=== PATIENT | female | born 1935 | race Caucasian/White ===

== ENCOUNTER 2019-05-19 11:48 | Emergency (ER) | payer MEDICARE, BC ==
[~2019-05-19] VITALS: Ht 162.6 cm; Wt 58.0 kg
[~2019-05-19 11:48] MED LIST: ASPI-611 PO; MULT-1179 PO; RED600TA PO; lidocaine 1%/epinephrine 1:100,000 injection 50ml vial ONE
[2019-05-19 12:18] VITALS: BP 183/105
[2019-05-19] MEDS ORDERED: AMOX-422 PO (13:31)
[2019-05-19] MEDS ORDERED: TETanus/Pertussis (Acell)/Diphther VAC/PF (Tdap-Adult) 0.5ml syringe IM ONE (13:35)
== END 2019-05-19 14:02 | disposition home or self-care (01) ==
LOC: ER 11:49
DX: S62.632B Displaced fracture of distal phalanx of right middle finger, initial encounter for open fracture (principal); M81.0 Age-related osteoporosis without current pathological fracture; Z98.890 Other specified postprocedural states; Z91.041 Radiographic dye allergy status; Z79.82 Long term (current) use of aspirin; Z79.899 Other long term (current) drug therapy; W22.8XXA Striking against or struck by other objects, initial encounter; Y93.89 Activity, other specified; Y92.89 Other specified places as the place of occurrence of the external cause; Y99.8 Other external cause status
CPT/HCPCS: 29130; 73140; 90471; 99283

== ENCOUNTER 2021-03-26 21:08 | Emergency (ER) | payer MEDICARE, BC ==
[~2021-03-26] VITALS: Ht 162.6 cm; Wt 57.2 kg
[~2021-03-26 21:08] MED LIST changes: +APIX5TAB3 PO; +ASCO-139 PO; +CALC600T82 PO; +CHOL10006 PO; +LEVO50TA8 PO; +ROSU20TA31 PO; +VITA-268 PO; +VITA-332 PO; -lidocaine 1%/epinephrine 1:100,000 injection 50ml vial ONE
[2021-03-26] MEDS ORDERED: diltiazem 5mg/ml 5ml inj. IV ONE (21:30)
[2021-03-26] MEDS ORDERED: aspirin 81mg tab.chew PO ONE (21:30)
[2021-03-26 21:38] LABS: BASOPHILS # (AUTO) 0.1 X10'3 (0-0.2); BASOPHILS % (AUTO) 0.8 % (0-1); EOSINOPHILS # (AUTO) 0.3 X10'3 (0-0.9); EOSINOPHILS % (AUTO) 3.2 % (0-6); HEMATOCRIT 42.6 % (35.0-45.0); HEMOGLOBIN 14.4 g/dl (12.0-16.0); LYMPHOCYTES # (AUTO) 2.2 X10'3 (1.1-4.8); MEAN CORPUSCULAR HGB CONC 33.8 g/dL (33.0-36.5); MEAN CORPUSCULAR VOLUME 91.7 FL (78-98); MEAN PLATELET VOLUME 7.5 FL (7.4-10.4); MONOCYTES # (AUTO) 0.8 X10'3 (0-0.9); MONOCYTES % (AUTO) 9.5 % (2-12); NEUTROPHILS # (AUTO) 5.5 X10'3 (1.8-7.7); NEUTROPHILS % (AUTO) 61.5 % (42-75); PLATELET COUNT 330 X10'3 (140-440); RED BLOOD COUNT 4.64 X10'6 (4.20-5.60); RED CELL DISTRIBUTION WIDTH 13.8 % (11.5-14.5); WHITE BLOOD COUNT 8.9 X10'3 (4.5-11.0)
[2021-03-26 21:48] LABS: ALANINE AMINOTRANSFERASE 28 U/L (12-78); ALBUMIN 3.5 G/DL (3.4-5.0); ALBUMIN/GLOBULIN RATIO 1.1 (1.1-1.5); ALKALINE PHOSPHATASE 86 IU/L (46-116); ANION GAP 12 (8-16); ASPARTATE AMINO TRANSFERASE 26 U/L (10-37); BILIRUBIN,TOTAL 0.3 MG/DL (0.1-1.0); BLOOD UREA NITROGEN 15 MG/DL (7-18); BUN/CREATININE RATIO 17.6 (6.6-38.0); CALCIUM 8.5 MG/DL (8.5-10.1); CHLORIDE 102 MMOL/L (99-107); CREATININE 0.85 MG/DL (0.40-0.90); GLUCOSE 159 MG/DL (70-104); POTASSIUM 3.4 MMOL/L (3.5-5.1); SODIUM 137 MMOL/L (135-145); TOTAL PROTEIN 6.7 G/DL (6.4-8.2); eGFR 64 ML/MIN
--- NOTE | 2021-03-26 21:50 | NUR ---
PT SHOWN TO HAVE CONVERTED HER RYTHM DOWN TO A SINUS AT 96 BPM. PT SHOWS NO SIGNS OF DISTRESS AND STATES ELBOW DISCOMFORT IS NOW GONE.
--- NOTE | 2021-03-26 21:50 | NUR ---
DR. ORTIZ ADVISED OF PT CONDITION AND RYTHM CHANGE, REPEAT EKG DONE AND DR. ORTIZ ADVISED TO NOT GIVE PT MEDICATION AT THIS TIME.
[2021-03-26] MEDS ORDERED: potassium Cl 20 mEq SR tablet PO STA (22:58)
[2021-03-26 23:13] VITALS: BP 146/74
== END 2021-03-26 23:15 | disposition home or self-care (01) ==
LOC: ER 21:10
DX: I48.20 Chronic atrial fibrillation, unspecified (principal); E87.6 Hypokalemia; Z98.890 Other specified postprocedural states; Z91.041 Radiographic dye allergy status; Z79.01 Long term (current) use of anticoagulants; Z79.82 Long term (current) use of aspirin; Z79.899 Other long term (current) drug therapy
CPT/HCPCS: 36415; 71045; 80053; 80162; 83735; 83880; 84484; 85025; 85610; 93005; 99285